=== PATIENT | male | born 1980 | race Caucasian/White ===

== ENCOUNTER 2020-10-10 20:46 | Emergency (ER) | payer OTHER ==
[2020-10-10 22:59] LABS: BASOPHIL 0.7 % (0-2); EOSINOPHIL 2.1 % (0-5); HCT 50.5 % (42.0-52.0); HGB 17.9 g/dl (13.2-18.0); LYMPHOCYTE 34.9 % (15-48); MCH 31.7 pg (25.0-31.0); MCHC 35.4 g/dL (32.0-36.0); MCV 89.5 fL (78.0-100.0); MONOCYTE 7.7 % (0-12); MPV 11.5 fL (6.0-9.5); NEUTROPHIL 51.3 % (41-80); NRBC 0; PLT 168 K/uL (150-400); RBC 5.64 M/uL (4.70-6.00); RDW 12.1 % (11.5-14.0); WBC 10.1 K/uL (4.0-10.5)
[2020-10-10 23:00] LABS: BILIRUBIN NEGATIVE (NEGATIVE); BLOOD NEGATIVE Ery/uL (NEGATIVE); CLARITY CLEAR (CLEAR); COLOR YELLOW (YELLOW); GLUCOSE (U) NORMAL (NORMAL); LEUKOCYTES NEGATIVE Leu/uL (NEGATIVE); NITRITE NEGATIVE (NEGATIVE); PROTEIN NEGATIVE (NEGATIVE); UROBILINOGEN 0.2 mg/dL (0.2-1.0); pH 6.5 (5.0-9.0)
[2020-10-10 23:19] LABS: LACTIC ACID 0.9 mmol/L (0.4-1.9)
[2020-10-10 23:30] LABS: ALBUMIN 3.4 g/dL (3.4-5.0); BILIRUBIN - TOTAL 1.2 mg/dL (0.2-1.0); GLOBULIN (CALCULATION) 2.9 g/dL; MAGNESIUM 2.2 mg/dL (1.8-2.4); PHOSPHORUS 3.7 mg/dL (2.6-4.7); POTASSIUM 3.6 mmol/L (3.5-5.1); TOTAL PROTEIN 6.3 g/dL (6.4-8.2)
[2020-10-11] MEDS ORDERED: NORCO 5-325 TA1 EACH PO (02:25)
[2020-10-11] MEDS ORDERED: COLACE100 MG PO (02:25)
== END 2020-10-11 02:30 | disposition home or self-care (01) ==
LOC: FER 20:46
PROVIDERS: Emergency Medicine Emergency Medical Services
DX: S09.90XA Unspecified injury of head, initial encounter (principal); M79.10 Myalgia, unspecified site; J45.909 Unspecified asthma, uncomplicated; F17.210 Nicotine dependence, cigarettes, uncomplicated; W54.1XXA Struck by dog, initial encounter
CPT/HCPCS: 36415; 70450; 70486; 80053; 81003; 82550; 82728; 83605; 83615; 83735; 84100; 84145; 84484; 85025; 85379; J1885; J2270; J2405; J7120